=== PATIENT | male | born 1955 | race Caucasian/White ===

== ENCOUNTER 2025-01-24 22:42 | Emergency (ER) | payer BC, SELFPAY ==
[2025-01-24 22:45] VITALS: BP 166/99; PULSE 69; RESP 18; O2SAT 98
--- NOTE | 2025-01-24 22:59 | ED.GENADUL_ITS ---
Discharge Plan Discharge Details Chief Complaint: AnimalBite Clinical Impression: Dog bite of left forearm Primary Care Provider: Unknown,Unknown ED Provider: Waylon Wade Home Meds and New Rx's Prescriptions: No Action No Known Home Meds HPI General Mode of arrival: ambulatory . Date/Time Provider Initiated Documentation: 01/24/25 22:44 . Limitations to Documentation: no limitations . Information obtained by: patient and RN notes reviewed . HPI Narrative: Patient presents to ED with dog bite to the left forearm. Patient was bitten by family dog, a [place] Malinois. Dog is up-to-date on all immunizations. Pat ient is unsure of his tetanus status. Patient is right hand dominant. Sustained significant wound to the mid left forearm. There is some venous bleeding. He reports very little sensation in the little finger. He is able to open and close his left hand. He denies injury elsewhere. Related Data Home Medications ?Medication ?Instructions ?Recorded ?Confirmed Unknown [No Known Home Meds] 05/17/23 1 Allergies Allergy/AdvReac Type Severity Reaction Status Date / Time clindamycin (From Cleocin) Allergy Mild Skin Rash Verified 01/24/25 22:55 General Stated Complaint: AnimalBite JAILYN: 3 Exam Narrative Exam Narrative: Const: WDWN male in NAD. VS per triage. HEENT: NC/AT. Normal facial exam. Neck: Supple. Trachea midline. Lungs: Normal respiratory effort. Cor: RRR. Good radial pulses. Neuro: A+O x 3. Normal speech, mentation, gait. Cranial nerves II - XII grossly intact. No gross motor deficit. Decreased sensation of the left little finger, especially the palmar side Ext: No C/C/E. Open wound down into muscle mid dorsal forearm, tendons appear in tact but are visible and may have partial tears. Swelling and smaller wounds/punctures on the ulna/volar mid forearm. Distal strength seems good, radial pulse strong, little finger with decrease in sensation. Course Vital Signs Vital signs: Vital Signs Pulse 69 01/24/25 22:45 Respiratory Rate 18 01/24/25 22:45 Blood Pressure 166/99 H 01/24/25 22:45 Pulse Oximetry 98 01/24/25 22:45 Pulse 69 01/24/25 22:45 Respiratory Rate 18 01/24/25 22:45 Blood Pressure 166/99 H 01/24/25 22:45 Pulse Oximetry 98 01/24/25 22:45 Pain Level 5 01/24/25 22:45 Medical Decision Making Patient presenting to ED with significant dog bite injury to the left forearm. Will plan IV with Unasyn and ketorolac. Will update tetanus. Will washout the wound and place in wet-to-dry. X-rays to be obtained to rule out fracture as well as foreign body. X-rays per my read without evidence of foreign body and no evidence of fracture. Discussed with trauma, Dr. Drummnod, at [facility] as well as surgery here, Dr. Mitchell. Open wound is about 3-4cm in length and 2-3 cm in width, does appear to be missing skin. He does think the numbness in his little and ring finger is improving. Continues to have normal strength and motion involving wrist and hand. At this point due to the deeper injury involving muscle will not attempt closure. Wound further irrigated a second time, packed with iodoform and placed in a compression dressing by me. Patient will remain in the ED to receive a second dose of Unasyn and be evaluated by Dr. Mitchell in the morning. Imaging Data Radiologic Study: Attestation: I personally reviewed and interpreted this imaging study as follows: Imaging: X-Ray My impression: see [facility] All Active Problems (Updated 01/25/25 @ 03:00 by Waylon Wade MD) Dog bite of left forearm (Acute) Social History Smoking/Tobacco Use Status: Never Smoking risk assessment performed?: Yes Alcohol Intake: never
[2025-01-24] MEDS: Ketorolac 15 MG/ML VIAL IVP (23:18)
[2025-01-24] MEDS: Tetanus & Diphtheria Tox,ADULT 0.5 ML VIAL IM (23:19)
[2025-01-24] MEDS: AMPICILLIN/SULBACTAM 3 GM in Normal Saline 100 ML IVPB (23:22)
--- NOTE | 2025-01-24 23:53 | DI.RAD_ITS ---
Exam(s) XR FOREARM LT EXAM: XR FOREARM LT CLINICAL HISTORY: dog bite. TECHNIQUE: 2D digital imaging was performed of the left forearm. Two views were obtained. AP and lateral views were obtained. COMPARISON: No exams were available for comparison FINDINGS: BONES: No acute fracture is present. No bony destructive lesion is seen. Visualized portion of elbow and wrist joints are unremarkable. SOFT TISSUE: Soft tissue gas is seen along the dorsum of the forearm. There is focal soft tissue swelling in the mid forearm posteriorly. No radiopaque foreign bodies are seen. IMPRESSION: 1. There is no radiopaque foreign body. 2. No acute fracture or dislocation. 3. The preliminary [facility] report was reviewed. DATA REPOSITORY: RADIATION DOSE DELIVERED:
--- NOTE | 2025-01-25 00:51 | DI.[facility]_ITS ---
PROCEDURE INFORMATION: Exam: XR Left Forearm Exam date and time: 01/24/2025 11:52 PM Age: 69 years old Clinical indication: Injury or trauma; Other: Dog bite; Arm, lower; Left; Injury date: 01/24/25 TECHNIQUE: Imaging protocol: Radiologic exam of the left forearm. Views: 2 views. COMPARISON: No relevant prior studies available. FINDINGS: Bones/joints: No fracture. Soft tissues: Extensive soft tissue laceration. No discernible foreign body. IMPRESSION: 1. No fracture. 2. Extensive soft tissue laceration. No discernible foreign body. Dictated and Authenticated by: Olaf Leavitt MD. Orderin Mauro Connors MD
[2025-01-25 01:06] VITALS: BP 172/94; PULSE 72; RESP 18; O2SAT 97
[2025-01-25] MEDS: AMPICILLIN/SULBACTAM 3 GM in Normal Saline 100 ML IVPB (04:59)
[2025-01-25 05:40] VITALS: BP 131/79; PULSE 66; RESP 18; O2SAT 97
--- NOTE | 2025-01-25 07:20 | ED.PROG_ITS ---
Date of service: 01/25/25 Time of Service: 07:20 Medical Decision Making I received signout on this 69-year-old male with a soft tissue defect in his left forearm secondary to a dog attack. He is pending surgical consultation. The dog is up-to-date on vaccinations. Patient received Tdap update and antibiotics. [address] Mitchell at bedside. She will help to arrange close outpatient follow-up. I treated patient with 7-day course of amoxicillin clavulanic acid. We discussed return indications. Patient discharged with empiric trial of expectant outpatient management. Discharge Plan Discharge Details Chief Complaint: AnimalBite Clinical Impression: Dog bite of left forearm, Immunization, tetanus-diphtheria Primary Care Provider: Unknown,Unknown ED Provider: Avila Boucher [facility] and New Rx's Prescriptions: New amoxicillin-pot clavulanate 875-125 mg tablet 1 tab PO BID Qty: 14 0RF Discharge Instructions Additional Instructions: You were seen in the emergency department for your dog bite which was left to heal on its own. Please take these antibiotics as directed. Please return to the emergency department if you develop streaking signs of infection fevers or any foul-smelling drainage. Otherwise please follow-up with the general surgery team For your pain please take medications as follows: 1. Take acetaminophen (Tylenol), 1,000 mg (two 500 mg tabs) every 6 hours [2. Take ibuprofen (Advil), 400 mg every 6 hours.] Discharge Data Discharge Date/Time-TO BE ENTERED AT DEPARTURE: 01/25/25 10:15
[2025-01-25 08:14] VITALS: BP 145/84; PULSE 69; RESP 16; TEMP 36.6; O2SAT 96
--- NOTE | 2025-01-25 08:58 | NUR.NOTE ---
Addendum entered by Dinora Stevens 01/25/25 09:10: Spoke with Carmelita and she is aware of the report. Alternate fax number [phone] report faxed. Original Note: Message left for [facility] Officer; Carmelita Hines [phone]; regarding report and that it will be faxed on Monday to the [facility] Clerk. Nursing Note:
--- NOTE | 2025-01-25 09:29 | W.SURGCON ---
Date of service: 01/25/25 Time of Service: 09:29 Assessment and Plan Assessment and plan (1) Dog bite of left forearm: Status: Acute Assessment and plan: 3x4cm open wound of left arm with marginal viability of the skin edges. This is an avulsion type injury with injury to the fascia of the forearm muscles, without injury to the muscles or tendons of the forearm. Range of motion in fingers and wrist is minimally limited by pain but intact. sensation decreased in branches of ulnar distribution namely the small fingertip. No active major bleeding. I dont recommend closing this wound, unfortunately I think it is high risk for infection and high risk for evolution of more nonviable wound material in the coming days. I recommend aggressive washout which has been completed, tetanus vaccination which has been completed, and a good wound care and follow up plan which I will make. Office will be contacted for follow up arrangements for wound care visits this week. We can determine if debridements or wound vac will be needed based on evolution of the wound. Wound care plan provided to patient and his - wash around wound daily with soapy water, rinse, and pat dry. Ok to let soapy water rinse over wound but to not put your fingers into the wound. Pat dry. paint edges with betadine. Cut Maxsorb with silver alginate to fit wound and apply to wound bed. Cover with dry 4x4 gauze, pad with more gauze or ABD and wrap with kerlix. Tight wrap not needed as bleeding has slowed. No need for activity restriction, wound is superficial. Change dressing daily. Augmentin for 7 days. Dog was up to date on vaccines and is the family dog, rabies risk low/minimal. Office follow up this week. History of Present Illness Narrative: Chief complaint: dog bite HPI: 69yo M who was bit by the family dog. Large dog, [place] island[place] malinois. Bite ti left forearm, and he says it was more like an attack. The dog tore the skin of the dorsal forearm and punctured multiple areas on the forearm. As soon as the dog bit the arm he says he felt the tip of his left smal finger go numb. It has not regained normal sensation, still feels tingly. Wound was copiously irrigated by the ER and washed out. he was given tetanus shot and unasyn. Bleeding and oozing from wound continued so pressure dressing placed. This morning the pain is mild. 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 normal movement of all four extremities speech is clear and coherent mood and affect are congruent, no focal neurological deficits L forearm mid forearm open avulsion of skin down to muscle body. muscle fascia is avulsed and muscle belly is visible. Muscle is intact. Marginally viable skin around wound edges, irreguar, measures about 4cm by 3cm by 0.75cm. Multiple additional puncture bites toward the volar surface. Mild amount of oozing from muscle belly. Results Last Vital Signs Temp 97.8 F 01/25/25 08:14 Pulse 69 01/25/25 08:14 Resp 16 01/25/25 08:14 BP 145/84 H 01/25/25 08:14 Pulse Ox 96 01/25/25 08:14
[2025-01-25 10:12] VITALS: BP 157/91; PULSE 63; RESP 15; O2SAT 97
== END 2025-01-25 10:15 | disposition home or self-care (01) ==
PROVIDERS: Emergency Provider Emergency Medicine
DX: S51.852A Open bite of left forearm, initial encounter (principal); W54.0XXA Bitten by dog, initial encounter; Z23 Encounter for immunization
CPT/HCPCS: 00123; 90471; 90714; 96365; 96366; 96375; 99284; 73090; J0295; J1885

== ENCOUNTER → 2025-02-05 13:29 | Outpatient (BNVA) | payer BC, SELFPAY | PROVIDERS: Visit Provider Surgery | DX: S51.802D Unspecified open wound of left forearm, subsequent encounter (principal); M62.89 Other specified disorders of muscle; W54.0XXD Bitten by dog, subsequent encounter | CPT/HCPCS: 99213 ==

== ENCOUNTER → 2025-02-21 10:29 | Outpatient (BNVA) | payer MEDICARE, BC, SELFPAY | PROVIDERS: Visit Provider Surgery | DX: S51.852D Open bite of left forearm, subsequent encounter (principal); W54.0XXD Bitten by dog, subsequent encounter | CPT/HCPCS: 99213 ==

== ENCOUNTER → 2025-03-21 10:03 | Outpatient (BNVA) | payer MEDICARE, BC, SELFPAY | PROVIDERS: Visit Provider Physical Therapy Assistant | DX: S51.852D Open bite of left forearm, subsequent encounter (principal); W54.0XXA Bitten by dog, initial encounter | CPT/HCPCS: 99212 ==